=== PATIENT | female | born 1980 | race Caucasian/White ===

== ENCOUNTER 2017-07-29 14:32 | Emergency (ER) | payer SELFPAY ==
[2017-07-29] MEDS ORDERED: Sulfamethoxazole/Trimethoprim 800-160 MG Tab PO ONE (14:33)
[2017-07-29] MEDS ORDERED: Take Home: Sulfamethoxazole/Trimethoprim 800-160 MG Tab, 2 Tab Pack PO ONE (14:48)
--- NOTE | 2017-07-29 14:51 | EDM.PDOC ---
ED HPI GENERAL MEDICAL PROBLEM - General Chief Complaint: Skin Complaint Stated Complaint: INFECTED THUMB Time Seen by Provider: 07/29/17 14:42 Source of Information: Reports: Patient History Limitations: Reports: No Limitations - History of Present Illness INITIAL COMMENTS - FREE TEXT/NARRATIVE: Patient is a 36 yo that presents to the ER. Patient reports that about "2 weeks , maybe 1 week ago" that she cut her finger cutting tomatoes with a knife. She reports cutting the palm side of the distal thumb right. 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 Right thumb at laceration site has swelling, redness, heat. Nothing to drain at this time. No streaking of redness. Nail not involved. No joint involved, distal tip. Healing infected laceration site is about 2cm. Pulses +2, cap refill <2 sec, sensory/motor function intact. Neurovascular intact. Site does have potential to become fluctulant and need I&D, but it is hard today and no drainage at this time. Onset Date: 07/22/17 Duration: Week(s): ("2, maybe 1") Location: Reports: Upper Extremity, Right Severity: Mild Improves with: Reports: None Worsens with: Reports: None Associated Symptoms: Reports: Other ("irritability"). Denies: Confusion, Chest Pain, Cough, cough w sputum, Diaphoresis, Fever/Chills, Headaches, Loss of Appetite, Malaise, Nausea/Vomiting, Rash, Seizure, Shortness of Breath, Syncope , Weakness - Related Data Allergies Allergy/AdvReac Type Severity Reaction Status Date / Time No Known Allergies Allergy Verified 07/29/17 16:53 Home Meds: Home Meds Levothyroxine Sodium 88 mcg PO DAILY 07/29/17 [History] ED ROS GENERAL - Review of Systems Review Of Systems: See Below Constitutional: Reports: No Symptoms HEENT: Reports: No Symptoms Respiratory: Reports: No Symptoms Cardiovascular: Reports: No Symptoms Endocrine: Reports: No Symptoms GI/Abdominal: Reports: No Symptoms : Reports: No Symptoms Musculoskeletal: Reports: No Symptoms Skin: Reports: Wound (right thumb infected) Neurological: Reports: No Symptoms Psychiatric: Reports: Agitation (irritability) Hematologic/Lymphatic: Reports: No Symptoms Immunologic: Reports: No Symptoms ED EXAM, SKIN/RASH Exam: See Below Exam Limited By: No Limitations General Appearance: Alert, WD/WN, No Apparent Distress Respiratory/Chest: No Respiratory Distress, Lungs Clear, Normal Breath Sounds, No Accessory Muscle Use Cardiovascular: Normal Peripheral Pulses, Regular Rate, Rhythm, No Edema, No Gallop, No JVD, No Murmur, No Rub Peripheral Pulses: 2+: Radial (R) Extremities: Normal Range of Motion, No Pedal Edema, Normal Capillary Refill, Redness (redness, tenderness, swelling to the right distal thumb at laceration infected site. No drainage. ) Neurological: Alert, Oriented Skin: Warm, Dry, No Rash, Wound/Incision (old infected laceration right thumb. ) Location, Skin: Upper Extremity, Right Associated features: Warmth, Tenderness, Swelling, Inflammation. No: Crusting, Weeping Lymphatic: No Adenopathy Course - Vital Signs Last Recorded V/S: Last Vital Signs Temp 97.8 F 07/29/17 14:33 Pulse 99 07/29/17 14:33 Resp 16 07/29/17 14:33 BP 142/97 H 07/29/17 14:33 Pulse Ox 99 07/29/17 14:33 - Orders/Labs/Meds Meds: Medications Discontinued Medications Generic Name Dose Route Start Last Admin Trade Name Freq PRN Reason Stop Dose Admin Trimethoprim/Sulfamethoxazole 2 packet 07/29/17 14:48 07/29/17 15:05 Take Home: Sulfameth/Trimet 800-160mg, 2 Pack PO 07/29/17 14:49 2 packet ONETIME ONE Administration Departure - Departure Time of Disposition: 14:48 Disposition: Home, Self-Care 01 Condition: Good Clinical Impression: Laceration of right thumb with infection Qualifiers: Encounter type: initial encounter Qualified Code(s): S61.011A - Laceration without foreign body of right thumb without damage to nail, initial encounter - Discharge Information Instructions: Wound Infection, [id number] Referrals: PCP,None [Primary Care Provider] - Forms: ED Department Discharge Additional Instructions: Followup with your primary care provider (may need to be drained at some point) Return to the ER for worsening of condition or any emergent concerns Soak in Epson salts Bactrim DS 1 pill twice a day for total of 10 days; #4 take home, #16 script. - Assessment/Plan Plan: PLEASE SEE RN NOTE FOR PFSH.
== END 2017-07-29 15:05 | disposition home or self-care (01) ==
LOC: CC.ED 14:32
DX: S61.011A Laceration without foreign body of right thumb without damage to nail, initial encounter (principal); Z79.899 Other long term (current) drug therapy; W26.0XXA Contact with knife, initial encounter
CPT/HCPCS: 99282; A9270